=== PATIENT | male | born 1960 | race American Indian/Alaskan Native ===

== ENCOUNTER 2019-07-15 16:41 | Emergency (ER) | payer OTHER ==
[2019-07-15 17:38] LABS: BUN/Creatinine Ratio 20; Blood Urea Nitrogen 16 mg/dL (9-20); Calcium 9.6 mg/dL (8.4-10.2); Hemolysis Index 6
[2019-07-15 17:56] LABS: Hematocrit 46.9 % (35.5-45.6); Mean Corpuscular HGB Conc 32 % (32-34); Mean Corpuscular Volume 86 fl (84-94); Platelet Count 219 K/mm3 (140-440); Red Blood Count 5.43 M/mm3 (3.65-5.03); Red Cell Distribution Width 15.1 % (13.2-15.2)
--- NOTE | 2019-07-15 19:33 | Emergency Department Report ---
ED Seizure HPI - General Chief Complaint: Seizure Stated Complaint: SEIZURE Time Seen by Provider: 07/15/19 18:55 Source: patient Mode of arrival: Ambulatory Limitations: No Limitations - History of Present Illness Initial Comments: This is a 58-year-old -[place] male who presents to the emergency room status post seizure today at home. Patient states he got off work around 8:00 this morning after working two 12 hour shifts and felt very tired. 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 Patient states he is seeing a neurologist every [address] [facility] [address] Zuniga. He stopped taking keppra 750 mg 6 months ago and restarted taking medication 2 months ago. He reports biting his tongue on the left side and noticed bruising to left side of forehead. Patient family states EMS brought him in because he was taken to long to regain memory. MD Complaint: seizure -: This afternoon Description of Episode: post-event confusion Witnessed:: Yes Trauma: No Seizure History: history of non-compliance Place: home Possible Precipitating Event: stress Associated Symptoms: denies other symptoms Treatments Prior to Arrival: none - Related Data Allergies Allergy/AdvReac Type Severity Reaction Status Date / Time No Known Allergies Allergy Verified 07/15/19 17:05 ED Review of Systems ROS: Stated complaint: SEIZURE Other details as noted in HPI Constitutional: denies: chills, fever ENT: other (bitten tongue) Respiratory: denies: cough, shortness of breath, wheezing Cardiovascular: denies: chest pain, palpitations Gastrointestinal: denies: abdominal pain, nausea, diarrhea Skin: other (abraison left side of forehead). denies: rash, lesions Neurological: denies: headache, weakness, paresthesias Psychiatric: denies: anxiety, depression ED Past Medical Hx - Past Medical History Previous Medical History?: Yes Hx Seizures: Yes - Surgical History Past Surgical History?: Yes Additional Surgical History: brain tumor removal - Social History Smoking Status: Never Smoker ED Physical Exam - General Limitations: No Limitations General appearance: alert, in no apparent distress - ENT ENT exam: Present: mucous membranes moist, other (1/2 cm superficial laceration to left distal tongue) - Neck Neck exam: Present: normal inspection - Respiratory Respiratory exam: Present: normal lung sounds bilaterally. Absent: respiratory distress - Cardiovascular Cardiovascular Exam: Present: regular rate, normal rhythm. Absent: systolic murmur, diastolic murmur, rubs, gallop - GI/Abdominal GI/Abdominal exam: Present: soft, normal bowel sounds. Absent: distended, tenderness, guarding, rebound, rigid - Neurological Exam Neurological exam: Present: alert, oriented X3 - Psychiatric Psychiatric exam: Present: normal affect, normal mood - Skin Skin exam: Present: warm, dry, intact, normal color, abrasion (1 cm erythematous abrasion to left frontal, nontender, skin intact). Absent: rash, cyanosis, diaphoretic, erythema, urticaria, vesicles, petechiae ED Course Vital Signs 07/15/19 07/15/19 07/15/19 16:53 17:01 18:00 Temperature 98.5 F Pulse Rate 78 Respiratory 16 Rate Blood Pressure 129/82 116/65 Blood Pressure [Left] O2 Sat by Pulse 96 96 95 Oximetry 07/15/19 19:30 Temperature 97.6 F Pulse Rate 84 Respiratory 13 Rate Blood Pressure Blood Pressure 125/80 [Left] O2 Sat by Pulse 95 Oximetry ED Medical Decision Making - Lab Data Result diagrams: 07/15/19 17:10 07/15/19 17:10 Lab Results 07/15/19 07/15/19 Range/Units 17:10 17:10 WBC 6.0 (4.5-11.0) K/mm3 RBC 5.43 H (3.65-5.03) M/mm3 Hgb 15.0 (11.8-15.2) gm/dl Hct 46.9 H (35.5-45.6) % MCV 86 (84-94) fl MCH 28 (28-32) pg MCHC 32 (32-34) % RDW 15.1 (13.2-15.2) % Plt Count 219 (140-440) K/mm3 Sodium 141 (137-145) mmol/L Potassium 4.2 (3.6-5.0) mmol/L Chloride 105.4 (98-107) mmol/L Carbon Dioxide 25 (22-30) mmol/L Anion Gap 15 mmol/L BUN 16 (9-20) mg/dL Creatinine 0.8 (0.8-1.5) mg/dL Estimated GFR > 60 ml/min BUN/Creatinine Ratio 20 % Glucose 98 (75-100) mg/dL Calcium 9.6 (8.4-10.2) mg/dL - Radiology Data Radiology results: report reviewed CT head/brain wo con INDICATION / CLINICAL INFORMATION: 58 years Male; seizure with prolonged period. TECHNIQUE: Routine CT head without contrast. All CT scans at this location are performed using CT dose reduction for ALARA by means of automated exposure control. COMPARISON: None. FINDINGS: BRAIN / INTRACRANIAL CONTENTS: The patient is status post interval left frontal craniotomy with underlying encephalomalacia involving the left frontal lobe at. This mild ex vacuo dilatation of the left frontal horn. The brain otherwise appears to demonstrate appropriate attenuation for age. There is no CT evidence of acute intracranial hemorrhage. ORBITS: No significant abnormality of visualized orbits. SINUSES / MASTOIDS: No significant abnormality the visualized paranasal sinuses or mastoid air cells. CRANIOCERVICAL JUNCTION: No significant abnormality. ADDITIONAL FINDINGS: None. IMPRESSION: 1. Status post left frontal craniotomy with underlying encephalomalacia. 2. There is no CT evidence of acute intracranial hemorrhage. - Medical Decision Making Patient was examined by me. Patient is nontoxic appearing and stable. Vitals are normal. Obtained labs and CT of head. All labs are unremarkable. CT of head findings of 1. Status post left frontal craniotomy with underlying encephalomalacia. 2. There is no CT evidence of acute intracranial hemorrhage. Patient informed of results. Patient states he has several bottles of keppra at home. Instructed to continue taking Keppra is prescribed by the neurologist. Instructed to follow up with neurologist Dr. Zuniga. Follow up with PCP or return to the ER with worsening symptoms. Patient discharged home in stable condition. Critical care attestation.: If time is entered above; I have spent that time in minutes in the direct care of this critically ill patient, excluding procedure time. 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 Zuniga as discussed on this visit. Started back taking Keppra as directed by your ski binding fitter and repairer. Time to the emergency room with worsening symptoms. Referrals: NAPOLEON ZUNIGA MD [Staff Physician] - 3-5 Days Forms: Work/School Release Form(ED) Time of Disposition: 21:29
[2019-07-15 20:43] VITALS: BP 125/80
--- NOTE | 2019-07-15 20:57 | Cat Scan Report ---
CT head/brain wo con INDICATION / CLINICAL INFORMATION: 58 years Male; seizure with prolonged period. TECHNIQUE: Routine CT head without contrast. All CT scans at this location are performed using CT dos e reduction for ALARA by means of automated exposure control. COMPARISON: None. FINDINGS: BRAIN / INTRACRANIAL CONTENTS: The patient is status post interval left frontal craniotomy with under lying encephalomalacia involving the left frontal lobe at. This mild ex vacuo dilatation of the left frontal horn. The brain otherwise appears to demonstrate appropriate attenuation for age. There is no CT evidence o f acute intracranial hemorrhage. ORBITS: No significant abnormality of visualized orbits. SINUSES / MASTOIDS: No significant abnormality the visualized paranasal sinuses or mastoid air cells. CRANIOCERVICAL JUNCTION: No significant abnormality. ADDITIONAL FINDINGS: None. IMPRESSION: 1. Status post left frontal craniotomy with underlying encephalomalacia. 2. There is no CT evidence of acute intracranial hemorrhage. Signer Name: Remigio Polk MD Signed: 07/15/2019 8:52 PM Workstation Name: [id number]
== END 2019-07-15 21:45 | disposition home or self-care (01) ==
LOC: ED 16:41
DX: S00.81XA Abrasion of other part of head, initial encounter (principal); R56.9 Unspecified convulsions; X58.XXXA Exposure to other specified factors, initial encounter; Y93.89 Activity, other specified; Y92.89 Other specified places as the place of occurrence of the external cause; Y99.8 Other external cause status
CPT/HCPCS: 36415; 70450; 80048; 85027